=== PATIENT | female | born 1995 | race Two or more races ===

== ENCOUNTER 2024-05-13 00:22 | Emergency (ER) | payer MEDICAID, SELFPAY ==
[2024-05-13 00:22] VITALS: BMI 39.2
[2024-05-13 00:32] VITALS: BP 127/83; PULSE 96; RESP 18; TEMP 37.2; O2SAT 98
--- NOTE | 2024-05-13 00:46 | PD.EDRME ---
Rapid Medical Screening Exam RME Arrival date/time: 05/13/24 00:22 28 year old female present to ED for c/o of headache I have greeted and performed a focused initial assessment of this patient. A comprehensive ED assessment and evaluation of the patient, analysis of all test results, and completion of the medical decision making process will be conducted by additional ED providers. Chief Complaint: Headache Time Seen by Provider: 05/13/24 00:45 Vital signs: Vital Signs Temperature 98.9 F 05/13/24 00:32 Pulse Rate 96 05/13/24 00:32 Respiratory Rate 18 05/13/24 00:32 Blood Pressure 127/83 05/13/24 00:32 Pulse Oximetry (%) 98 05/13/24 00:32 Oxygen Delivery Method Room Air 05/13/24 00:32
[2024-05-13 01:28] LABS: Basophils % (Auto) 0 % (0-2.5); Eosinophils % (Auto) 0 % (0-10); Hematocrit 40.1 % (36.0-46.0); Hemoglobin 13.3 g/dL (12.0-16.0); Immature Granulocytes % (Auto) 0 % (0-0); Immature Granulocytes Auto 0.03 Thou/mm3 (0.00-0.00); Lymphocytes % (Auto) 9 % (10-50); Mean Corpuscular HGB Conc 33.2 g/dl (31.0-37.0); Mean Corpuscular Hemoglobin 27.5 pg (25.0-35.0); Mean Corpuscular Volume 83 fL (80-100); Monocytes # (Auto) 0.4 Thou/mm3 (0.0-0.8); Monocytes % (Auto) 3 % (0-12); Neutrophils # (Auto) 9.8 Thou/mm3 (1.8-7.7); Neutrophils % (Auto) 87 % (37-80); Nucleated Red Blood Cell % 0 /100 WBC (0); Platelet Count 253 Thou/mm3 (140-440); RDW Standard Deviation 39.6 fL (36.4-46.3); Red Blood Count 4.83 Miln/mm3 (4.00-5.20); White Blood Count 11.2 Thou/mm3 (3.6-11.0)
[2024-05-13] MEDS: PROCHLORPERAZINE INJ 5 MG/ML VIAL 2 ML 10 MG IM (01:36)
[2024-05-13] MEDS: DiphenhydrAMINE ELIX 25 MG/10 ML UDC 12.5 MG PO (01:36)
[2024-05-13 01:45] LABS: Alanine Aminotransferase 16 U/L (10-49); Albumin/Globulin Ratio 1.9 (1.2-2.2); Alkaline Phosphatase 115 U/L (46-116); Anion Gap 8 (7-16); Aspartate Amino Transferase 18 U/L (0-34); BUN/Creatinine Ratio 11 Ratio (12-20); Bilirubin,Total 0.4 mg/dL (0.3-1.2); Blood Urea Nitrogen 8 mg/dL (9-23); Calcium 9.9 mg/dL (8.3-10.6); Calcium (Corrected) 9.9 mg/dL (8.5-10.1); Carbon Dioxide 26.4 mMol/L (20.0-31.0); Chloride 104 mMol/L (98-107); Creatinine (Component) 0.7 mg/dL (0.6-1.3); Estimated Creatinine Clearance 107.1 mL/min (>60); Globulin 2.7 gm/dL (2.3-3.5); Glucose 141 mg/dL (74-106); Osmolality,Calculated 275 (275-295); Potassium 4.1 mMol/L (3.4-5.1); Sodium 138 mMol/L (136-145); Total Protein 7.7 gm/dL (5.7-8.2); eGFR > 60 See Note
[2024-05-13 02:07] LABS: HCG,Qualitative Serum Negative
--- NOTE | 2024-05-13 02:09 | XR_ITS ---
Examination: CT brain head without contrast. 2-D sagittal coronal reconstructions Date and time of exam:May 13, 2024 0320 hrs. Indications: Worsening headache and vomiting today CTDI: vol (mGy):50.8 DLP: (mGycm):1017 Technique: Multiple CT axial sections of the brain have been obtained, 5 mm slice thickness. Contrast has not been administered. 2-D sagittal, coronal reconstructions have been obtained Low dose protocols were performed. One or more of the following dose reduction techniques were used; automated exposure control, adjustment of the mA and/or KV according to patient size, use of iterative reconstruction technique. Findings: No significant ventricular enlargement. Intra-axial or extra-axial hemorrhage density is not seen. No mass effect or midline shift Basal cisterns are not remarkable. Fourth ventricle is midline. Cranial vault intact. Impression: Negative for acute hemorrhage, mass effect or midline shift If new onset headaches persist, consider brain MRI follow-up
--- NOTE | 2024-05-13 04:13 | PRELIM_ITS ---
CT scan of the head without intravenous contrast (axial sections with sagittal and coronal reformats) . May 13, 2024 0320 hoursClinical History: Worsen headache.No prior study is available for compar citlali. Findings:No evidence of intracranial hemorrhage, mass effect or midline shift. The ventricles a nd CSF spaces are unremarkable. The calvarium is unremarkable. There is mild mucosal thickening in th e left maxillary sinus. The mastoid air cells and the remainder of visualized paranasal sinuses are c lear.Impression:No evidence of intracranial hemorrhage, mass effect or midline shift. Report Electron ically Signed By: Yohana Watson 05/13/2024 4:12:49 AM [EST]
[2024-05-13 04:28] VITALS: BP 130/76; PULSE 88; RESP 18; TEMP 36.8; O2SAT 96
--- NOTE | 2024-05-13 04:29 | EDNOTE_ITS ---
ED Headache RME/HPI General Chief Complaint: Headache Stated Complaint: head pain and vomitting Time Seen by Provider: 05/13/24 00:45 Arrival date/time: 05/13/24 00:22 28 year old female present to emergency room with c/o of headache for 3 days. LOCATION: right side headache SEVERITY: Symptoms are described as being severe with limitations on activities of daily living QUALITY: Symptoms are described as being dull or achy CONTEXT: The patient is unable to identify any inciting events. DURATION/TIMING: The symptoms started approximately 3 day ago and have been constant since then and have been progressive getting worse. ASSOCIATED SYMPTOMS: The patient is unable to identify any other associated symp toms. MODIFYING FACTORS: The patient is unable to identify any alleviating or aggravating symptoms. PERTINENT ROS: Headache is gradual in onset, not maximal intensity at onset, not associated with syncope or presyncope, not the first or the worst, not associated with head trauma or anticoagulant use, no associated focal neurological deficits, denies associated neck pain, no recent fevers, no une xplained rashes, no recent foreign travel, immunized, REVIEW OF SYSTEMS: See History of Present Illness - with the exception of those mentioned in the history of present illness, all other systems reviewed and reported as negative GENERAL: In general the patient is awake, interactive, in an emergency department gurney. HEAD/EYES/EARS/NOSE/THROAT: normo-cephalic, atraumatic, mucus membranes are moist, anicteric, palpebral conjunctiva is pink, trachea is midline. CARDIOVASCULAR: regular rate and regular rhythm, no murmurs, heart sounds are not distant, strong pulses in all four extremities that are equal and symmetric bilateral upper and lower extremities, normal capillary refill. CHEST/PULMONARY: normal chest rise and fall, good air movement, clear to auscultation bilaterally, normal inspiratory to expiratory ratios without evidence of respiratory distress. NECK: No midline/Paraspinal tenderness, no step off ROM/Strenght intact No Kernig and bruzinski sign. No trauma ABDOMEN: soft, not tender, no masses appreciated BACK: normal range of motion without pain. NEUROLOGICAL: cranio-facial features are symmetric, moves all four extremities equally without obvious limitations or weakness. EXTREMITY: no tenderness to palpation over the long bones or large joints of the bilateral upper and lower extremities, no joint swelling, no joint erythema, no signs of trauma, no unilateral leg swelling and no peripheral edema. SKIN: warm, dry, well-perfused, no jaundice, no rash, no telangiectasias or petechia. PSYCH: calm, cooperative, no evidence of psychosis or agitation RME / HPI RME / HPI Narrative: 05/13/24 00:22 28 year old female present to ED for c/o of headache I have greeted and performed a focused initial assessment of this patient. A comprehensive ED assessment and evaluation of the patient, analysis of all test results, and completion of the medical decision making process will be conducted by additional ED providers. Related Data Home Medications ?Medication ?Instructions ?Recorded ?Confirmed No Known Home Medications 03/30/24 03/30/24 Allergies Allergy/AdvReac Type Severity Reaction Status Date / Time No Known Allergies Allergy Verified 03/30/24 15:25 Course Course Course Narrative: presents with Headache. No focal neurological symptoms. Neuro exam is benign. Pt is nontoxic. VSS. CT head and basic labs within normal limits or negative? Based on history and normal neurological exam I have low suspicion for intracranial tumor, intracranial bleed, meningitis, temporal arteritis, glaucoma, CO poisoning. Most likely patient has benign headache, recommend rest, hydration, and ibuprofen. Disposition: Discharge home with strict return precautions and instructions for prompt primary care follow up. Quality Measures none Orders Category Date Time Status Bedside COVID-19 Antigen Test NOW Care 05/13/24 00:45 Completed Bedside Influenza A&B Antigen Test NOW Care 05/13/24 00:[address] head/brain wo con Stat Exams 05/13/24 02:09 Taken CBC Stat Lab 05/13/24 01:21 Completed CMP [Comprehensive Metabolic Panel] Stat Lab 05/13/24 01:21 Completed HCG,Qualitative Serum Stat Lab 05/13/24 01:21 Completed DiphenhydrAMINE [Benadryl] Med 05/13/24 00:45 Discontinued 12.5 mg PO X1 ONE Ketorolac Inj [Toradol Inj] Med 05/13/24 00:45 Discontinued 30 mg IM X1 ONE Prochlorperazine Inj [Compazine Inj] Med 05/13/24 00:45 Discontinued 10 mg IM X1 ONE Reevaluation(s) Reevaluation #1: pt is feeling better after medication Vital Signs Vital signs: Vital Signs Temperature 98.9 F 05/13/24 00:32 Pulse Rate 96 05/13/24 00:32 Respiratory Rate 18 05/13/24 00:32 Blood Pressure 127/83 05/13/24 00:32 Pulse Oximetry (%) 98 05/13/24 00:32 Oxygen Delivery Method Room Air 05/13/24 00:32 Headache Patient data External records reviewed:: None Clinical information provided by:: patient and family Social determinants that could affect healthcare access:: none Patient has the following chronic illnesses:: none How is presenting disease/condition affected by chronic disease/condition?: no chronic disease Evaluation data The following diagnostics were reviewed and interpreted by me:: lab results and radiology exam(s) Lab and/or radiology exams considered but not ordered:: none Interpretation Summary: cbc/cmp: wnl ct: negative Medications / Prescriptions Medications or Prescriptions considered but not ordered:: none Medication administrations:: Medication Administration History Discontinued Medications Diphenhydramine HCl (Diphenhydramine Elix 25 Mg/10 Ml Udc) 12.5 mg PO X1 ONE Stop: 05/13/24 00:46 Last Admin: 05/13/24 01:36 Dose: 12.5 mg Documented By: Ketorolac Tromethamine (Ketorolac Inj 60 Mg/2 Ml Vial) 30 mg IM X1 ONE Stop: 05/13/24 00:46 Last Admin: 05/13/24 01:41 Dose: Not Given Documented By: Non-Admin Reason: Cancelled by Provider Prochlorperazine Edisylate (Prochlorperazine Inj 5 Mg/Ml Vial 2 Ml) 10 mg IM X1 ONE; Protocol Stop: 05/13/24 00:46 Last Admin: 05/13/24 01:36 Dose: 10 mg Documented By: as state above Consultations Consultation(s) initiated? (list below): No Diagnosis Differential diagnosis headache: migraine, tension headache, subarachnoid hemorrhage, headache and sinusitis Most likely diagnosis given after review of the tests above:: headache/migraine Admission Indicated Admission indicated?: not indicated Admission Request Was there a request for admission?: No Disposition Plan Disposition Plan: Discharge Discharge Attestation Discharge Attestation: The patient and all family members were given an opportunity to ask questions and understood the discharge instructions. Discharge instructions specifically effects, indications for sooner follow up or return to the emergency department, and the expected course of current diagnosis. Patient condition: Stable Discharge Plan Plan Patient Disposition: HOME (Self Care) Prescriptions/Referrals Prescriptions/Med Rec: No Action No Known Home Medications Referrals: Se Alejo MD [Primary Care Provider] - In 1 week Problem List Clinical Impression: Headache Patient/Caregiver Discharge Instructions Education Materials: Self-Care for Headaches Print Language: Slovenian Stand Alone Forms: Tammi Award Info., Patient Portal Info Letter
== END 2024-05-13 04:31 | disposition home or self-care (01) ==
PROVIDERS: Physician Assistant; Emergency Provider Emergency Medicine; PCP Family Medicine
DX: R51.9 Headache, unspecified (principal)
CPT/HCPCS: 36415; 70450; 80053; 81025; 84703; 85025; 87400; 87811; 96372; 99284; J0780; A9270

== ENCOUNTER → 2024-05-19 | Outpatient (BNVA) | payer MEDICAID, SELFPAY | END | disposition home or self-care (01) | PROVIDERS: PCP Nurse Practitioner Family; Referring Provider Nurse Practitioner Family; Visit Provider Nurse Practitioner Family | DX: Z00.01 Encounter for general adult medical examination with abnormal findings (principal); E66.09 Other obesity due to excess calories; Z68.35 Body mass index [BMI] 35.0-35.9, adult; Z13.220 Encounter for screening for lipoid disorders; Z13.1 Encounter for screening for diabetes mellitus; Z11.3 Encounter for screening for infections with a predominantly sexual mode of transmission | CPT/HCPCS: 81025; 99215 ==

== ENCOUNTER → 2024-05-26 | Outpatient (BNVA) | payer MEDICAID, SELFPAY | END | disposition home or self-care (01) | PROVIDERS: PCP Nurse Practitioner Family; Referring Provider Nurse Practitioner Family; Visit Provider Nurse Practitioner Family | DX: N39.0 Urinary tract infection, site not specified (principal); E55.9 Vitamin D deficiency, unspecified; R73.03 Prediabetes; Z71.2 Person consulting for explanation of examination or test findings; Z31.41 Encounter for fertility testing; E78.5 Hyperlipidemia, unspecified; E28.1 Androgen excess | CPT/HCPCS: 99213 ==

== ENCOUNTER → 2025-02-02 | Outpatient (BNVA) | payer MEDICAID, SELFPAY | END | disposition home or self-care (01) | PROVIDERS: PCP Nurse Practitioner Family; Referring Provider Nurse Practitioner Family; Visit Provider Nurse Practitioner Family | DX: Z01.84 Encounter for antibody response examination (principal); Z28.39 Other underimmunization status | CPT/HCPCS: 99214 ==

== ENCOUNTER → 2025-02-10 | Outpatient (BNVA) | payer MEDICAID, SELFPAY | END | disposition home or self-care (01) | PROVIDERS: PCP Nurse Practitioner Family; Referring Provider Nurse Practitioner Family; Visit Provider Nurse Practitioner Family | DX: Z23 Encounter for immunization (principal); Z71.2 Person consulting for explanation of examination or test findings | CPT/HCPCS: 90471; 90686; 90744; 99213 ==